=== PATIENT | female | born 1985 | race Two or more races ===

== ENCOUNTER → 2022-06-02 | Emergency (ER) | payer OTHER ==
[~2022-06-02] VITALS: Ht 165.1 cm; Wt 49.9 kg
[~2022-06-02] MED LIST: TDAP [DIPH/PERTUSSIS/TET] 0.5 ML VIAL IM ONE
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
--- NOTE | 2022-06-02 03:18 | NUR ---
SEEN BY MD AT BEDSIDE, SKIN PREP DONE
--- NOTE | 2022-06-02 03:27 | NUR ---
[employer] AT BED SIDE
--- NOTE | 2022-06-02 03:58 | NUR ---
REFUSED TETANUS SHOTS
--- NOTE | 2022-06-02 04:01 | NUR ---
Patient discharged with [employer] custody in stable condition. Written and verbal after care instructions given. Patient verbalizes understanding of instruction. PT ambulatory with a steady gait
[2022-06-02 04:04] VITALS: BP 129/84
--- NOTE | 2022-06-02 04:04 | NUR ---
Patient discharged to home in stable condition. Written and verbal after care instructions given. Patient verbalizes understanding of instruction.
== END ==
LOC: ER 03:07
DX: S01.01XA Laceration without foreign body of scalp, initial encounter (principal); F31.9 Bipolar disorder, unspecified; Y04.2XXA Assault by strike against or bumped into by another person, initial encounter; Y93.89 Activity, other specified; Y92.009 Unspecified place in unspecified non-institutional (private) residence as the place of occurrence of the external cause; Y99.8 Other external cause status